=== PATIENT | male | born 2000 | race African-American/Black ===

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

== ENCOUNTER 2019-10-25 11:11 | Emergency (ER) | payer OTHER ==
[~2019-10-25] VITALS: Ht 175.3 cm; Wt 72.6 kg
[2019-10-25 11:30] VITALS: BP 105/61
--- NOTE | 2019-10-25 12:07 | NUR ---
ED Nurse Note: pt presents to ED c/o lower abd pain onset last PM. pt also reports 1 episode of vomiting last night. denies any blood in vomit or diarrhea. pt also states that it "feels wierd" when he urinates, but states it is not painful
[2019-10-25] MEDS ORDERED: Acetaminophen 500mg (ES) tab ORAL ONE (12:15)
[2019-10-25 13:12] LABS: APPEARANCE,URINE CLEAR; BILIRUBIN, URINE NEGATIVE (NEGATIVE); GLUCOSE, URINE (UA) NEGATIVE (NEGATIVE); KETONES,URINE NEGATIVE (NEGATIVE); LEUKOCYTE ESTERASE ,URINE NEGATIVE (NEGATIVE); NITRITE,URINE NEGATIVE (NEGATIVE); PH,URINE 6 (4.5-8.0); UROBILINOGEN,URINE NORMAL MG/DL (0.0-1.0)
[2019-10-25 13:16] LABS: PROTEIN,URINE NEGATIVE (NEGATIVE)
[2019-10-25 13:18] LABS: COLOR,URINE YELLOW
--- NOTE | 2019-10-25 13:51 | Emergency Room Report ---
History of Present Illness General Chief Complaint: Abdominal Pain Source: Patient Present Illness HPI Patient presents with abdominal pain nausea since last night. He believes he ate something that was bad. His significant other is also ill and being seen in the emergency department. He denies diarrhea or vomiting. There is no hematemesis or melena. Last moves his bowels yesterday. There is no dysuria. He denies fevers or chills. The pain is rated 7/10 and constant, mid abdomen and nonradiating. Patient denies exposure to positive COVID-19 contacts. No fevers, chills, sore throat, chest pain, palpitations, diarrhea, dysuria, shortness of breath, joint pain, rashes, depression, anxiety, visual changes, dizziness, headache. Patient has a history of asthma but denies wheezing or productive cough. Allergies: Coded Allergies: No Known Allergies (Unverified , 06/24/18) COVID-19 Screening Contact w/high risk pt: No Experienced COVID-19 symptoms?: No COVID-19 Testing performed DIRECTOR OF CARDIOPULMONARY SERVICES: No Patient History Past Medical History: see triage record Social History: Denies: smoking Social History Narrative With significant other Reviewed Nursing Documentation: PMH: Agreed; PSxH: Agreed Nursing Documentation-PMH Past Medical History: No History, Except For Hx Asthma: Yes Review of Systems All Other Systems: negative except mentioned in HPI Physical Exam Vital Signs Date Time Temp Pulse Resp B/P (MAP) Pulse Ox O2 Delivery O2 Flow Rate FiO2 10/25/19 11:20 98.1 79 16 105/61 (76) 96 Room Air Sp02 EP Interpretation: reviewed, normal General Appearance: well appearing, no apparent distress, GCS 15 Head: normocephalic Eyes: bilateral eye normal inspection, bilateral eye PERRL, bilateral eye EOMI ENT: moist mucus membranes Neck: supple Respiratory: lungs clear, normal breath sounds Cardiovascular #1: regular rate, rhythm Cardiovascular #2: 2+ radial (R) Gastrointestinal: normal inspection, normal bowel sounds, no mass, non- distended, no guarding, no rebound, tenderness - Diffuse Musculoskeletal: back normal, normal range of motion, gait/station normal Neurologic: alert, oriented x3, grossly normal Psychiatric: mood/affect normal Skin: no rash, warm/dry Medical Decision Making Diagnostic Impression: Primary Impression: Abdominal pain Qualified Codes: R10.84 - Generalized abdominal pain Additional Impression: Food poisoning ER Course The patient presents with abdominal pain since last night after eating suspicious food. Differential includes food poisoning, gastroenteritis, appendicitis, urinary tract infection amongst others. Patient's abdominal exam is nonsurgical at this time. Laboratories not indicated based on vital signs and physical exam. Urinalysis is obtained. Patient treated with Zofran, Pepcid and Tylenol. Serial exams indicated. Urinalysis unremarkable. Patient improved with treatment. Sleeping when I came to reevaluate him. He states the pain is still there but improved. Abdomen is soft. Discussed findings and treatment plan with patient. Discussed outpatient observation. Patient stable for outpatient observation and treatment. Laboratory Tests Test 10/25/19 12:23 Urine Color Yellow Urine Appearance Clear Urine pH 6 (4.5-8.0) Urine Specific [place] 1.025 (1.005-1.035) Urine Protein Negative (NEGATIVE) Urine Glucose (UA) Negative (NEGATIVE) Urine Ketones Negative (NEGATIVE) Urine Blood Negative (NEGATIVE) Urine Nitrite Negative (NEGATIVE) Urine Bilirubin Negative (NEGATIVE) Urine Urobilinogen Normal MG/DL (0.0-1.0) Urine Leukocyte Esterase Negative (NEGATIVE) Last Vital Signs Date Time Temp Pulse Resp B/P (MAP) Pulse Ox O2 Delivery O2 Flow Rate FiO2 10/25/19 14:15 98.0 16 105/61 96 Room Air 10/25/19 11:30 87 Status: improved Disposition: HOME, SELF-CARE Condition: Improved Scripts Phenobarb/Hyoscy/Atropine/Scop ( TABLET) 16.2 Mg Tablet 16.2 MG PO Q6HR PRN for abdominal pain, #6 TAB Prov: Lamont Pineda MD 10/25/19 Acetaminophen (Tylenol) 325 Mg Tablet 650 MG ORAL Q6H PRN for Prn Pain/Headache/Temp > 101, #20 TAB 0 Refills Prov: Lamont Pineda MD 10/25/19 Ondansetron Odt* (ZOFRAN ODT*) 4 Mg Tab.rapdis 4 MG BC EVERY 8 HOURS, #4 TAB 0 Refills Prov: Lamont Pineda MD 10/25/19 Lamont Pineda MD Oct 25, 2019 13:51
[2019-10-25] MEDS ORDERED: [UNRECOGNIZED DRUG - OTHER] PO (13:54)
[2019-10-25] MEDS ORDERED: ONDANSETRON ODT4 MG BC (13:54)
[2019-10-25] MEDS ORDERED: TYLENOL325 MG ORAL (13:54)
[2019-10-25 14:15] VITALS: BP 105/61
--- NOTE | 2019-10-25 14:15 | NUR ---
ER DISCHARGE NOTE: Patient is cleared to be discharged per ERMD, pt is aox4, on room air, with stable vital signs. pt was given dc and prescription instructions, pt was able to verbalize understanding, pt id band removed without complications. pt verbalized improvement of pain. pt is able to ambulate with steady gait. pt took all belongings.
--- NOTE | 2019-10-25 16:23 | NUR ---
ED Nurse Note: Authorization from [facility] [id number] Kadi
== END 2019-10-25 14:15 | disposition home or self-care (01) ==
LOC: EMR 12:46
DX: R10.84 Generalized abdominal pain (principal); R11.0 Nausea
CPT/HCPCS: 81003; 99283

== ENCOUNTER 2019-11-18 12:07 | Emergency (ER) | payer OTHER ==
[~2019-11-18] VITALS: Ht 175.3 cm; Wt 72.6 kg
[~2019-11-18 12:07] MED LIST: ONDANSETRON ODT4 MG BC; TYLENOL325 MG ORAL; [UNRECOGNIZED DRUG - OTHER] PO
--- NOTE | 2019-11-18 12:20 | NUR ---
ED Nurse Note: pt walked in from home c/o RLQ abd pain, onset 2 days ago. pt was seen and treated here a few weeks ago for similar symptoms, did not get prescriptions filled, abd pain has returned. pt denies N/V/D or any urinary symptoms, thinks it is related to eating seafood which he reports he hasn't had for years.
[2019-11-18 12:21] VITALS: BP 112/63
--- NOTE | 2019-11-18 12:22 | NUR ---
ED Nurse Note: pt also mentions dishcarge from penis and that he recently had unprotected sex
[2019-11-18] MEDS ORDERED: Ketorolac 30mg Inj IV ONE (12:45)
--- NOTE | 2019-11-18 12:47 | Emergency Room Report ---
History of Present Illness General Chief Complaint: Abdominal Pain Source: Patient Present Illness HPI Patient is a 19-year-old male denies any significant past medical history who presents the ER complaining of right lower quadrant pain for the past several days. He states for the past 2 days he has had dysuria and discharge from his penis. He denies any fever or chills. He denies any nausea or vomiting. He denies any diarrhea. He denies any chest pain or shortness of breath. Patient admits to unprotected sexual activity. Allergies: Coded Allergies: No Known Allergies (Unverified , 06/24/18) COVID-19 Screening Contact w/high risk pt: No Experienced COVID-19 symptoms?: No COVID-19 Testing performed TOE PULLER: No Patient History Reviewed Nursing Documentation: PMH: Agreed; PSxH: Agreed Nursing Documentation-PMH Hx Asthma: Yes Review of Systems All Other Systems: negative except mentioned in HPI Physical Exam Vital Signs Date Time Temp Pulse Resp B/P (MAP) Pulse Ox O2 Delivery O2 Flow Rate FiO2 11/18/19 12:14 98.2 106 20 112/63 (79) 95 Room Air Sp02 EP Interpretation: reviewed, normal General Appearance: no apparent distress, alert, GCS 15, non-toxic Head: normocephalic, atraumatic Eyes: bilateral eye normal inspection, bilateral eye PERRL ENT: hearing grossly normal, normal pharynx, no angioedema, normal voice Neck: full range of motion, supple/symm/no masses Respiratory: chest non-tender, lungs clear, normal breath sounds, speaking full sentences Cardiovascular #1: regular rate, rhythm, no edema Gastrointestinal: soft, other - Right lower quadrant pain with no guarding or rebound Rectal: deferred Genitourinary: no CVA tenderness Musculoskeletal: normal range of motion Neurologic: leach cell operator III-XII nml as tested, oriented x3 Psychiatric: no suicidal/homicidal ideation Skin: no rash Medical Decision Making Last Vital Signs Date Time Temp Pulse Resp B/P (MAP) Pulse Ox O2 Delivery O2 Flow Rate FiO2 11/18/19 12:21 106 20 Room Air 11/18/19 12:21 98.2 112/63 95 Denisha Zuluaga M.D. Nov 18, 2019 12:47
[2019-11-18 12:51] LABS: BASOPHILS % (AUTO) 1.9 % (0.0-2.0); EOSINOPHILS % (AUTO) 3.7 % (0.0-3.0); HEMATOCRIT 47.4 % (42.0-52.0); HEMOGLOBIN 15.7 G/DL (14.2-18.0); LYMPHOCYTES % (AUTO) 22.4 % (20.0-45.0); MEAN CORPUSCULAR VOLUME 81 FL (80-99); MONOCYTES % (AUTO) 12.3 % (1.0-10.0); NEUTROPHILS % (AUTO) 59.7 % (45.0-75.0); PLATELET COUNT 186 K/UL (150-450); RED BLOOD COUNT 5.83 M/UL (4.70-6.10); RED CELL DISTRIBUTION WIDTH 12.8 % (11.6-14.8); WHITE BLOOD COUNT 10.2 K/UL (4.8-10.8)
[2019-11-18] MEDS ORDERED: Lidocaine 1% MPF 10mg/ml 5ml INJ ONE (13:00)
[2019-11-18] MEDS ORDERED: Azithromycin 250mg tab ORAL ONE (13:00)
[2019-11-18 13:02] LABS: ANION GAP 6 mmol/L (5-15); BLOOD UREA NITROGEN 10 mg/dL (7-18); CALCIUM 9.4 MG/DL (8.5-10.1); CARBON DIOXIDE 29 MMOL/L (21-32); CHLORIDE 105 MMOL/L (98-107); POTASSIUM 4.2 MMOL/L (3.5-5.1); SODIUM 139 MMOL/L (136-145)
[2019-11-18 13:08] LABS: ALANINE AMINOTRANSFERASE 24 U/L (12-78); ALBUMIN 4.1 G/DL (3.4-5.0); ALBUMIN/GLOBULIN RATIO 1.1 (1.0-2.7); ALKALINE PHOSPHATASE 96 U/L (46-116); ASPARTATE AMINO TRANSFERASE 21 U/L (15-37); BILIRUBIN,TOTAL 0.4 MG/DL (0.2-1.0)
--- NOTE | 2019-11-18 13:15 | Diagnostic Imaging Report ---
Indication: Abdominal pain x2 days Technique: Spiral acquisitions obtained through the abdomen and pelvis. No oral contrast utilized, per emergency room physician request No IV contrast utilized, per referring physician request.. Multiplanar reconstructions were generated. Total dose length product 243 mGycm. CTDIvol(s) 4 mGy. Dose reduction achieved using automated exposure control Comparison: None Findings: Lack of enteric contrast limits assessment of the GI tract. The appendix is normal. There is no evidence of diverticulosis or diverticulitis. The rectum is mildly distended with stool, measures up to 6 cm transverse diameter. No rectal wall thickening or surrounding inflammatory change demonstrated. No of small bowel distention. No free or loculated intraperitoneal gas or fluid is evident. The distal esophagus, stomach, duodenum are unremarkable. The lack of IV contrast limits assessment of the solid organs. The liver, gallbladder, bile ducts, pancreas, spleen, adrenals, kidneys are unremarkable, except that there is mild abnormal axis rotation of the right kidney. No pelvic mass or adenopathy. The included lung bases are clear. The bones are unremarkable. The highest cut demonstrates mild right gynecomastia Impression: Limited assessment of the GI tract, due to lack of enteric contrast administration No definite acute abnormality Mild rectal distention with stool Incidental findings as noted, including mild right gynecomastia, abnormal axis rotation of the right kidney The CT scanner at [facility] is accredited by the [employer] and the scans are performed using protocols designed to limit radiation exposure to as low as reasonably achievable to attain images of sufficient resolution adequate for diagnostic evaluation.
[2019-11-18 13:56] LABS: APPEARANCE,URINE CLOUDY; BILIRUBIN, URINE NEGATIVE (NEGATIVE); COLOR,URINE PALE YELLOW; GLUCOSE, URINE (UA) NEGATIVE (NEGATIVE); KETONES,URINE NEGATIVE (NEGATIVE); LEUKOCYTE ESTERASE ,URINE 3+ (NEGATIVE); NITRITE,URINE NEGATIVE (NEGATIVE); PH,URINE 6.5 (4.5-8.0); PROTEIN,URINE NEGATIVE (NEGATIVE); UROBILINOGEN,URINE NORMAL MG/DL (0.0-1.0)
[2019-11-18] MEDS ORDERED: CIPRO500 MG PO (14:06)
[2019-11-18 14:15] VITALS: BP 112/63
--- NOTE | 2019-11-18 14:15 | NUR ---
ER DISCHARGE NOTE: Patient is cleared to be discharged per ERMD, pt is aox4, on room air, with stable vital signs. pt was given dc and prescription instructions, pt was able to verbalize understanding, pt id band and iv site removed without complications. pt is able to ambulate with steady gait. pt took all belongings.
== END 2019-11-18 14:15 | disposition home or self-care (01) ==
LOC: EMR 12:50
DX: R10.31 Right lower quadrant pain (principal); N62 Hypertrophy of breast
CPT/HCPCS: 36415; 74176; 80053; 80307; 81003; 83690; 83735; 85025; 87086; 96361; 96372; 96374; 96375; 99284; J0696; J1885; J7030